=== PATIENT | female | born 1965 | race Caucasian/White ===

== ENCOUNTER 2019-10-29 13:45 | Outpatient (CLI) | payer OTHER, SELFPAY ==
--- NOTE | ~2019-10-29 | XR_ITS ---
EXAMINATION: XR chest 2V DATE: 10/29/2019 14:07 INDICATION: Hypertension. Preop. TECHNIQUE: Frontal and lateral views of the chest were obtained. COMPARISON: Chest 2 views 04/03/2009 FINDINGS: The chest demonstrates clear lungs without pneumonia, pleural effusion, or pneumothorax. Th e heart size is normal. There are prominent paracardial fat pads. There are surgical clips in right a bdomen. IMPRESSION: 1. No acute cardiopulmonary disease. Reviewed, dictated and finalized at location A.
== END 2019-10-29 13:46 | disposition home or self-care (01) ==
PROVIDERS: PCP Nurse Practitioner Family; Visit Provider Orthopaedic Surgery
DX: M75.102 Unspecified rotator cuff tear or rupture of left shoulder, not specified as traumatic (principal); Z87.891 Personal history of nicotine dependence
CPT/HCPCS: 71046; 87070

== ENCOUNTER 2019-10-31 01:11 | Outpatient (CLI) | payer OTHER, SELFPAY ==
[2019-10-31 18:07] LABS: SARS-CoV-2 RNA PCR Negative
== END 2019-10-31 01:12 | disposition home or self-care (01) ==
LOC: ANHCOVIDDT 01:11
PROVIDERS: PCP Nurse Practitioner Family; Visit Provider Orthopaedic Surgery
DX: Z01.812 Encounter for preprocedural laboratory examination (principal); Z11.59 Encounter for screening for other viral diseases
CPT/HCPCS: 87635; C9803; U0003

== ENCOUNTER 2019-11-02 02:25 | Day surgery (SDC) | payer OTHER, SELFPAY ==
[2019-10-24 16:31] VITALS: BMI 34.7
--- NOTE | 2019-10-31 10:17 | HP_ITS ---
DATE OF SERVICE: 11/02/2019 ADMIT DIAGNOSIS: Rotator cuff tear, left shoulder. HISTORY OF PRESENT ILLNESS: Ms. Peraza is a 54-year-old female patient of Dr. Del Castillo who presents today for arthroscopy of the left shoulder with acromioplasty, mini open rotator cuff repair. She injured her left shoulder on July 12 of this year when she was helping her mother out of a tub. Her mother slipped falling a little bit. She went to grab her and most of the weight fell into her left arm. She started having rather severe pain since that time. She initially saw her primary care doctor, was put on diclofenac, which did not improve her symptoms. She was initially evaluated by Dr. Strickland on August 14. After initial evaluation, she was sent for an MRI scan of the shoulder, which does show a full-thickness rotator cuff tear involving the entire width of the supraspinatus and upper portion of the infraspinatus. There appears to be an acute component of this as well as most likely some degree of chronic tearing. The patient is fairly miserable with the symptoms. She has had no improvement for almost 4 months in the shoulder. Dr. Strickland discussed surgical option of repair, which the patient like to proceed with today. PAST SURGICAL HISTORY: She has had sinus surgeries x2 in the past. She has had her gallbladder out in the past, appendectomy in the past, PAST MEDICAL HISTORY: History of diabetes, hypothyroidism, hypertension. CURRENT MEDICATIONS: She takes amlodipine 5 mg daily, Celebrex 200 mg daily, Pepcid 40 mg daily, 2 mg daily, albuterol inhaler p.r.n., metformin 500 mg daily, pantoprazole 40 mg daily. ALLERGIES: SULFA CODEINE AND MORPHINE. FAMILY HISTORY: Significant for ME, CVAs, as well as diabetes. SOCIAL HISTORY: She quit smoking in September 2017. PHYSICAL EXAMINATION: GENERAL: A 54-year-old female, very alert, pleasant. She is 5 feet 2 inches, 195 pounds. VITAL SIGNS: Other vital signs per nursing on the morning of surgery. HEENT: Grossly normal. LUNGS: Clear bilaterally. HEART: Regular rate and rhythm. EXTREMITIES: Left shoulder is elevation 170, external rotation is 60, internal rotation is to T8. She has rather severe pain with primary and secondary impingement testing. Moderate pain with thumbs-down abduction testing and weakness to a moderate degree. Mild weakness with external rotation. Strength testing. Negative belly press maneuver. Able to do a subscap lift-off. Moderate tenderness over the supraspinatus tendon insertion in the bicipital groove. No tenderness at the AC joint. Neck range of motion was moderately diminished. Negative Spurling's maneuver. 2+ radial pulse. Normal sensation in the left upper extremity. IMAGING DATA: X-rays demonstrate irregularities of the greater tuberosity. MRI scan again shows full-thickness tearing of the entire width of the supraspinatus as well as the upper portion of the infraspinatus. Some mild edema and fatty infiltration in both supraspinatus and infraspinatus muscle bellies. There is some involution of the tendon within the supraspinatus muscle belly suggesting acute component of the tear. IMPRESSION: Mrs. Peraza has a full-thickness rotator cuff tear, moderate to large size, with significant symptoms. Dr. Strickland discussed the options. The patient would like to proceed with surgical repair of the tendon. Surgical procedure as well as risks and complications were discussed. All questions were answered. We will proceed. The patient will stop her diclofenac. We have switched her to Celebrex to take for pain control prior to surgery. She has recently had an A1c, which was on August 29, which was 7.2. Surgical procedure as well as risks complications were discussed in detail. Questions were answered and donnie
[2019-11-02] VITALS (19 sets, daily range): BP systolic 94–132; BP diastolic 53–81; PULSE 70–102; RESP 12–20; TEMP 35.5–36.3; O2SAT 91–100
[2019-11-02 11:03] LABS: Glucose Point of Care 199 (65-105)
--- NOTE | 2019-11-02 11:08 | WPDANESEPPF ---
Anes - Initial Pre Proc Eval Procedure: Operation Date: 11/02/19 12:30 Proposed Procedures p Left Shoulder Arthroscopy, Acromioplasty, Mini Open Rotator Cuff Repair, Possible Arthrex Tissue Patch, Proceed As Indicated - Kush Strickland MD Date/Time: 11/02/19 11:08 Surgeon: Kush Strickland MD Pre Op Diagnosis: Left Rotator Cuff Tear Patient Data Age: 54 Gender: F Height: 5 ft 2 in Weight: 86.18 kg Allergies Allergy/AdvReac Type Severity Reaction Status Date / Time codeine Allergy Unknown HALLUCINATE, Verified 11/02/19 10:43 PARANOID morphine Allergy Unknown ANGER, Verified 11/02/19 10:43 COMBATIVE Home Medications Medication Instructions Recorded Confirmed Type amlodipine 5 mg PO DAILY 10/24/19 11/02/19 History atorvastatin 20 mg PO DAILY 10/24/19 11/02/19 History cholecalciferol (vitamin D3) 125 mcg PO DAILY 10/24/19 11/02/19 History [Vitamin D3] cyanocobalamin (vitamin B-12) 1,000 mcg PO DAILY 10/24/19 11/02/19 History [Vitamin B-12] cyclobenzaprine 10 mg PO HS 10/24/19 11/02/19 History diclofenac sodium 75 mg PO BID 10/24/19 11/02/19 History famotidine 40 mg PO DAILY 10/24/19 11/02/19 History glimepiride 2 mg PO DAILY 10/24/19 11/02/19 History insulin lispro [Humalog U-100 1 sliding scale dose SUBCUT 10/24/19 11/02/19 History Insulin] USEASDIRECTD levothyroxine 100 mcg PO DAILY 10/24/19 11/02/19 History lisinopril 20 mg PO BID 10/24/19 11/02/19 History metoprolol succinate 25 mg PO BID 10/24/19 11/02/19 History tiotropium-olodaterol [Stiolto 2 puff INHALATION DAILY 10/24/19 11/02/19 History Respimat] zinc 50 mg PO DAILY 10/24/19 11/02/19 History Laboratory Tests 11/02/19 10:59 POC Capillary Glucose 199 mg/dl H mg/dl (65-105) Patient hx anesthesia problems: none Family hx anesthesia problems: none PMFSH Past Medical History Medical History Anxiety COPD (chronic obstructive pulmonary disease) Diabetes Hyperlipidemia Hypertension Hypothyroid Social History Social History Smoking packs per day: 1.5 Smoking cigarettes per day: 30.0 Years smoked: 15 Smoking pack-years: 22.50 Smoking status: Former smoker Additional smoking assessment comments: QUIT 2 YEARS AGO Substance use: former Substance use type: marijuana Spiritual care concerns: No Anes - Eval Final PreProcedure Day of Procedure 11/02/19 11:08 Patient weight: obese Heart: regular rate and rhythm Lungs: decreased breath sounds Airway: Mallampati scale class II Neurological: alert and oriented Last oral intake: >/= 8 hours ASA classification: III Emergent: no Anesthetic plan: proceed Anesthesia type and monitoring: general ETT and standard monitoring Informed Consent: The patient's anesthetic plan and its attendant risks and benefits were discussed with the patient/family/POA. Questions were solicited and answers provided to the satisfaction of the patient/family/POA.
[2019-11-02] MEDS: LACTATED RINGERS 1,000 ML 30 ML IV CONT ×2 (11:19→15:58)
[2019-11-02] MEDS: KETOROLAC 15 MG/ML VIAL (*BKC) IV PUSH (11:19)
[2019-11-02] MEDS: ACETAMINOPHEN 500 MG TABLET 1000 MG PO (11:20)
--- NOTE | 2019-11-02 12:20 | WPDHPUPDATE1 ---
History and Physical Update Update Date/Time: 11/02/19 12:20 History and Physical has been reviewed, including an updated exam of the patient. There are NO changes in the patient's condition. Risks, benefits, and alternatives have been discussed and questions answered. Patient agrees to proceed with procedure.
[2019-11-02] MEDS: ceFAZolin 2 GM/D5W 50 ML 2 GM/50 ML BAG IVPB (12:29)
[2019-11-02] MEDS: BUPIVACAINE/EPINEPHRINE 0.5% 30 ML VIAL INFILTRATE (13:22)
[2019-11-02] MEDS: ceFAZolin SODIUM 1 GM VIAL IRRIGATION (13:22)
[2019-11-02] MEDS: ceFAZolin SODIUM 1 GM VIAL IV PUSH (15:38)
[2019-11-02] MEDS: KETOROLAC 30 MG/ML VIAL (*BKC) 15 MG IV PUSH (15:49)
--- NOTE | 2019-11-02 16:07 | PM.OP ---
Procedure Note - Brief Procedure Note - Brief Date of procedure: 11/02/19 Pre-op diagnosis: Left Rotator Cuff Tear Post-op diagnosis: same Procedure performed: Arthroscopic limited debridement and acromioplasty, open biceps tenodesis in the bicipital groove, mini open rotator cuff repair left shoulder Anesthesia: GETA Surgeon: Kush Strickland MD Assistant Finance Director: Gianluca stevens Estimated blood loss (mL): 50 Drains: No Packing: No Pathology: none sent Complications: No immediate complications Condition: stable Disposition: PACU
[2019-11-02] MEDS: ONDANSETRON INJ 4 MG/2 ML VIAL IV PUSH (16:19)
[2019-11-02] MEDS: diphenhydrAMINE HCl INJ 50 MG/ML VIAL 12.5 MG IV PUSH ×2 (16:44→17:22)
[2019-11-02 17:02] LABS: Glucose Point of Care 203 (65-105)
--- NOTE | 2019-11-02 18:31 | SUR.PHASEII ---
182 DR MONROY AWARE OF CONTINUED NAUSEA & PAIN RATING OF 9/10. STATES TO ADMIT PT & CONSULT HOSPITALIST FOR NAUSEA CONTROL.
--- NOTE | 2019-11-02 20:01 | ADMGEN ---
This patient, Luz Peraza, was admitted to 2 Medical Room 240-01 @ 1930. Patient/family oriented to hospital policies and general routines including ID bracelet, bed and alarms, visiting hours, pain management, procedures, bathroom and other care routines, personal items, smoking policy, room service/diet, and visiting hours. Valuables list has been completed. Information on how to activate the Rapid Response Team has been discussed. Patient/Family are encouraged to report perceived risks to care and to ask questions if they do not understand what they are told or what they should do.
[2019-11-02] MEDS: DEXTROSE 5%/0.45% SOD CHL 1,000 ML 100 ML IV CONT (20:11)
--- NOTE | 2019-11-02 20:42 | OP_ITS ---
DATE OF PROCEDURE: 11/02/2019 PREOPERATIVE DIAGNOSIS: Rotator cuff tear, left shoulder. POSTOPERATIVE DIAGNOSES: Rotator cuff tear, left shoulder and severe maceration and partial tearing of intra-articular portion of long head of the biceps. PROCEDURE: Arthroscopy, left shoulder with arthroscopic labral debridement and arthroscopic acromioplasty, open biceps tenodesis in the bicipital groove, open rotator cuff repair, left shoulder. DESCRIPTION OF PROCEDURE: The patient was brought to the operating room and general anesthesia was administered. She did not receive an interscalene block preoperatively due to diminished pulmonary function. She was carefully placed in the beach chair position, the head secured in neutral position and the left shoulder prepped and draped in usual fashion. A posterior portal was placed after Ioban coverage of all the skin except the top portion of the shoulder. She received 2 g of Ancef, weight-based vancomycin preoperatively. She had severe maceration of the intra-articular portion of the long head of the biceps with long strands that initially obscured visualization. An anterior superior portal was placed and a small shaver inserted and the maceration of the long head of the biceps was debrided. It was extensive and there was evagination of the intra-articular portion of the long head. There was maceration of the labrum, which was conservatively debrided. The articular cartilage in the glenoid looked good. She had mild chondromalacia diffusely on the humeral head. The upper edge of the subscapularis looked normal. The arthroscope was placed into the subacromial space and the U shaped rotator cuff tear was visualized with a split that ran longitudinally midsubstance from the infraspinatus. She did have bony exostosis at the inferior surface of the anterior acromion. The CA ligament was debrided from the anterior acromion after placing the anterior superior outflow portal using motorized shaver and ArthroCare, and with the ArthroCare and the posterior portal, a conservative anterior acromioplasty was performed. The instruments were removed and the remaining skin covered with Ioban and outer gloves changed. A 4 cm longitudinal incision was made over the anterior superior shoulder and dissection was carried down to the tendinous raphe between anterior middle head of the deltoid, which was longitudinally incised and a 4 cm split carried out. The subdeltoid bursa was incised in line of the split. Approximately 6 mm of anterior deltoid was elevated off the anterior acromion for additional exposure as we anticipated the biceps tenodesis. The rotator cuff tear was inspected and it involved the posterior 2/3rd of the supraspinatus. The anterior cable is still intact, and posteriorly there was a split running parallel to the fibers of the midsubstance of the infraspinatus. The infraspinatus posterior to the split was intact. We approached the long head of the biceps by incising the retinaculum over the bicipital groove. A stay suture was placed at the intended location of the tendon to leave the keyhole slot. We then released the long head of the biceps from the superior labrum under direct vision with a curved scissors, visualizing this through the tear. The biceps tendon was delivered through the incision in the aponeurosis over the bicipital groove and the proximal portion rolled up into a tight ball secured with numerous passes of a #2 FiberWire. The tendon was fairly thick for a female her size, and I could see we wound want a slot measuring about 3 to 3.5 mm thick. A keyhole slot was then made using a 5 mm bur to make about an 8 x 8 mm circular hole in the proximal aspect of the bicipital groove, and an 8 mm long, 3 mm wide slot inferior to this and the balled-up portion of the long
[2019-11-02] MEDS: CEPHALEXIN 500 MG CAPSULE PO (21:09)
[2019-11-02 22:02] LABS: Glucose Point of Care 294 (65-105)
--- NOTE | 2019-11-02 22:30 | WPDCN ---
Assessment and Plan Assessment and plan (1) Left rotator cuff tear: Code(s): M75.102 - Unspecified rotator cuff tear or rupture of left shoulder, not specified as traumatic Status: Acute Assessment and Plan: Status post left rotator cuff repair. Wound care and pain control deferred to primary service. (2) Postoperative nausea and vomiting: Code(s): R11.2 - Nausea with vomiting, unspecified; Z98.890 - Other specified postprocedural states Status: Acute Assessment and Plan: Resolved by the time of my evaluation. IV fluid rehydration overnight as she does appear bit dry. (3) Hypertension: Code(s): I10 - Essential (primary) hypertension Status: Acute Assessment and Plan: Blood pressures were a bit soft postoperatively, but have since normalized. Will resume antihypertensives and monitor closely. (4) Chronic obstructive pulmonary disease: Code(s): J44.9 - Chronic obstructive pulmonary disease, unspecified Status: Acute Assessment and Plan: No acute issues. Continue maintenance inhalers. (5) Type 2 diabetes mellitus: Code(s): E11.9 - Type 2 diabetes mellitus without complications Status: Acute Assessment and Plan: Hold oral hypoglycemics at this time given postoperative nausea and vomiting and not much oral intake this evening. Check hemoglobin A1c and initiate sliding scale insulin, Accu-Cheks, and hypoglycemic protocol. Additional Plan Thank you for allowing us to participate in this patient's care. Please do not hesitate to contact us with any questions. We will follow with you. Supervising physician for this medical consultation is Dr. Elvin Mtz. HPI Data of Consult Date/Time: 11/02/19 22:00 Requesting Physician: Kush Strickland MD Primary Care Provider: Claudine Luther, BEET WORKER Consult Narrative Narrative: Luz ePraza is a 54-year-old female whom the hospitalist service has been consulted for postoperative nausea and vomiting as well as management of her chronic medical conditions. Her medical history is significant for type 2 diabetes mellitus, hypertension, hyperlipidemia, GERD, hypothyroidism, COPD, and pulmonary embolism Sometime in June she injured her left shoulder while helping her mother of the bathtub. She has had quite a bit of pain in that left shoulder and was found to have a full-thickness rotator cuff tear which has been repaired today per Dr. Strickland. No immediate complications were documented and an estimated blood loss was 50 mL. She has a history of postoperative nausea and vomiting, and that was no different today. Fortunately she was given a cocktail in the perioperative setting and is feeling pretty good at this time. In fact she was able to eat not long prior to my arrival, and she is having no nausea. With regards to her pain, she has minimal discomfort in the left shoulder. She denies paresthesias, skin color, and temperature changes distal to the surgical site. She also denies chest pain shortness of breath. No fever or chills. Review of Systems Review of Systems: Narrative: Twelve systems were reviewed with pertinent positives and negatives as per HPI. No fever, chills, or sweats. No recent cold or flu symptoms. She denies cough and shortness of breath. No recent travel or sick contacts. She believes her diabetes is well controlled and she denies blurry vision, polydipsia, and polyuria. She does have irritable bowel syndrome and alternates between constipation and diarrhea. Except as documented, all other systems were reviewed and are negative. [facility] Past Medical History Medical History (Updated 11/03/19 @ 00:06 by Sawyer
[2019-11-03] MEDS: KETOROLAC 15 MG/ML VIAL (*BKC) IV PUSH ×2 (00:15→06:28)
[2019-11-03 01:06] VITALS: BP 101/61; PULSE 95; RESP 18; TEMP 35.9; O2SAT 96
[2019-11-03] MEDS: ONDANSETRON INJ 4 MG/2 ML VIAL IV PUSH (04:03)
[2019-11-03 05:06] VITALS: BP 145/71; PULSE 106; RESP 22; TEMP 36.6; O2SAT 99
[2019-11-03 06:16] LABS: Hemoglobin A1C 7.6 % (<5.7)
[2019-11-03] MEDS: LEVOTHYROXINE SODIUM 100 MCG TABLET PO (06:25)
--- NOTE | 2019-11-03 08:23 | WPDANESPN ---
Anes - Prog Note Post-Op Date/Time: 11/03/19 08:23 Cardiovascular status: normal Respiratory status: normal Airway patency: baseline Mental status: baseline Post-Op hydration status: normal Vital Signs: Last Vital Signs Temp 97.9 F 11/03/19 05:06 Pulse 106 H 11/03/19 05:06 Resp 22 H 11/03/19 05:06 BP 145/71 H 11/03/19 05:06 Pulse Ox 99 11/03/19 05:06 I/O: Intake & Output 11/02/19 11/03/19 11/03/19 23:59 07:59 15:59 Intake Total 700 350 Output Total 550 Balance 700 -200 11/02/19 11/02/19 11/02/19 10:59 16:29 20:16 POC Capillary Glucose 199 H 203 H 294 H Hemoglobin A1c 11/03/19 05:24 POC Capillary Glucose Hemoglobin A1c 7.6 H Post-procedural complaints: nausea Patient Feedback: Patient satisfied with anesthetic care.
[2019-11-03 09:10] LABS: Glucose Point of Care 230 (65-105)
[2019-11-03] MEDS: amLODIPine BESYLATE 5 MG TABLET PO (09:18)
[2019-11-03 09:19] VITALS: PULSE 104
[2019-11-03] MEDS: METOPROLOL SUCCINATE EXT REL 25 MG TABCR PO (09:19)
[2019-11-03] MEDS: FAMOTIDINE 20 MG TABLET 40 MG PO (09:19)
[2019-11-03] MEDS: lisinopriL 20 MG TABLET PO (09:19)
[2019-11-03] MEDS: ATORVASTATIN 20 MG TABLET PO (09:19)
[2019-11-03] MEDS: DOCUSATE SODIUM 100 MG CAPSULE PO (09:20)
[2019-11-03] MEDS: CEPHALEXIN 500 MG CAPSULE PO ×2 (09:20→13:05)
[2019-11-03] MEDS: INSULIN ASPART (*BKC) 100 UNITS/ML SUB-Q ×2 (09:21→13:08)
[2019-11-03 10:00] VITALS: BP 108/62; PULSE 90; RESP 18; TEMP 37.8; O2SAT 100
--- NOTE | 2019-11-03 10:56 | PM.IMPN ---
Progress Note: A&P Assessment and Plan (1) Left rotator cuff tear: Code(s): M75.102 - Unspecified rotator cuff tear or rupture of left shoulder, not specified as traumatic Status: Acute Assessment and Plan: Status post left rotator cuff repair by Dr. Strickland on 11/02/2019 Wound care and pain control deferred to primary service. (2) Postoperative nausea and vomiting: Code(s): R11.2 - Nausea with vomiting, unspecified; Z98.890 - Other specified postprocedural states Status: Acute Assessment and Plan: The patient ate breakfast this morning without any nausea or vomiting. She was able to take her pain medication this morning without any issues as well. She would like some antinausea pills to go home with since narcotics cause her to have nausea and vomiting at times. Will send her home with Zofran to take as needed for nausea (3) Hypertension: Code(s): I10 - Essential (primary) hypertension Status: Acute Assessment and Plan: Blood pressures are stable at this time. (4) Chronic obstructive pulmonary disease: Code(s): J44.9 - Chronic obstructive pulmonary disease, unspecified Status: Acute Assessment and Plan: No acute issues. Continue maintenance inhalers. (5) Type 2 diabetes mellitus: Code(s): E11.9 - Type 2 diabetes mellitus without complications Status: Acute Assessment and Plan: Hold oral hypoglycemics at this time given postoperative nausea and vomiting and not much oral intake this evening. Serum glucose this morning was slightly elevated at 230. Hemoglobin A1c was 7.6%. Continue sliding scale insulin while hospitalized and, Accu-Cheks ACHS. Once discharge she can resume her oral medications Time Spent With Patient Time with patient: 25 - 35 minutes Subjective Date/time seen: 11/03/19 10:56 Interval history: Date of service 11/03/2019: Patient reports feeling much better this morning. She states after every surgery were she received anesthesia she has nausea and vomiting episodes as well as apnea episodes were she is requiring oxygen. She also reports having issues with taking narcotic pain medications were she has nausea and vomiting associated. This morning she was able to eat her breakfast and take her narcotic pain medication without any issues thus far. She denies any chest pain, shortness of breath, fevers, chills, nausea, vomiting, abdominal pain, leg swelling, calf pain, lightheadedness, dizziness or any other symptoms at this time. Review of Systems Review of Systems: All systems reviewed & are unremarkable except as noted in HPI and below Exam Narrative: Exam Narrative: General: 54-year-old woman sitting up in bed talking to the aid. Appears comfortable. In no acute distress. Skin: No jaundice or cyanosis. Good skin turgor. Neck: Full range of motion. Supple. Respiratory: Lungs are clear to auscultation bilaterally. No wheezing, rales or rhonchi. No bony chest wall tenderness. Cardiovascular: The heart has a regular rate and rhythm without murmur. Left upper extremity: Left arm immobilizer is in place after having left rotator cuff surgery. Lower extremities: No lower extremity edema. Distal pulses are easily palpated. No calf tenderness to palpation. Gastrointestinal: The abdomen is soft, nontender and nondistended with active bowel sounds. Psychiatric: Lucid and oriented. Memory intact. Neurologic: No focal deficits. Speech is clear. No facial drooping. Objective Data Vital Signs Vital Signs: Vital Signs - 24 hr 11/02/19 11:24 11/02/19 15:58 11/02/19 16:10 Temperature 96.9 F L 97.3 F L Pulse Rate 70 74 85 Respir
[2019-11-03 11:59] LABS: Glucose Point of Care 201 (65-105)
[2019-11-03 12:00] VITALS: TEMP 37.2
[2019-11-03] MEDS: ACETAMINOPHEN 500 MG TABLET 1000 MG PO (13:07)
--- NOTE | 2019-11-03 16:49 | DS_ITS ---
DATE OF DISCHARGE: 11/03/2019 HOSPITAL COURSE: The patient is a 54-year-old female, who was admitted last evening for observation after outpatient surgery when she had severe nausea in the recovery room last evening. She had quite a bit of pain initially and this was controlled over the night with IV Toradol and a scopolamine patch was applied and she has done much better and feels she is ready to go home today. She is neurologically intact in left arm. She has no shortness of breath and her pain is well controlled. We are using oxycodone 2.5 and 5 mg doses and she has tolerated this well. History of intolerance to narcotics in the past, specifically codeine and morphine. We are going with low doses with her and she will use the 2.5 mg if all that is required as she does have some degree of emphysema problems. Her diabetes is marginally controlled and I talked to her about the fact that she is going to need to decrease her caloric intake, particularly sweets, but she does have significant obesity with a BMI of 35, which certainly contributes to poor diabetes control and generalized weight loss is recommended. Because of her diabetes, we have given her a 5-day course of Keflex for additional antibiotic prophylaxis against infection. At surgery, we repaired the rotator cuff tear and also performed a biceps tenodesis, as she had a markedly torn and macerated long head of biceps tendon intra-articular portion. She will be discharged home today with her . I am going to prescribe ibuprofen 400 mg 3 times a day as needed for a week. There is theoretical concern of decreased healing with concomitant antiinflammatory use after tendon repair, but I think the risk of this is outweighed by the risk of respiratory depression if we cannot control her pain adequately, and she has to take higher doses of narcotics to control her pain. She will also use scheduled Tylenol. I will see her in the office in 10 days. She will have outpatient physical therapy to start 1st part of next week to begin limb pendulum exercises and active range of motion of the wrist and digits. She will avoid use of the left hand. If she has any problems, she is instructed to call. Estephania I MT: [place]
== END 2019-11-03 14:04 | disposition home or self-care (01) ==
LOC: ANHSURGERY 16:12 → ANH2MED 19:22
PROVIDERS: Physician Assistant; PCP Nurse Practitioner Family; Visit Provider Orthopaedic Surgery
PROC: (CPT 29805; principal; 2019-11-02 12:30)
DX: M75.102 Unspecified rotator cuff tear or rupture of left shoulder, not specified as traumatic (principal); M75.82 Other shoulder lesions, left shoulder; R11.2 Nausea with vomiting, unspecified; I10 Essential (primary) hypertension; E78.5 Hyperlipidemia, unspecified; E03.9 Hypothyroidism, unspecified; E11.9 Type 2 diabetes mellitus without complications; J44.9 Chronic obstructive pulmonary disease, unspecified; F41.9 Anxiety disorder, unspecified; Z87.891 Personal history of nicotine dependence; Z79.4 Long term (current) use of insulin; E66.9 Obesity, unspecified; Z68.35 Body mass index [BMI] 35.0-35.9, adult; Z86.711 Personal history of pulmonary embolism
CPT/HCPCS: 29823; 23412; 23430; 36415; 83036; A4565; A9270; J0690; J1170; J1200; J1815; J1885; J2250; J2370; J2405; J2704; J2710; J3010; J3370; J7120

== ENCOUNTER 2019-11-18 09:58 | Emergency (ER) | payer OTHER, SELFPAY ==
--- NOTE | ~2019-11-18 | XR_ITS ---
XR chest 1V portable DATE: 11/18/2019 10:35 INDICATION: Cough, shortness of breath TECHNIQUE: Portable AP chest on 11/18/2019 at 1027 hours COMPARISON: 10/29/2019 2 view chest FINDINGS: Heart size appears within normal range. No pulmonary infiltrate or consolidation, pleural e ffusion or pulmonary vascular congestion or pneumothorax is evident. Aortic arch calcification. Diffuse idiopathic skeletal hyperostosis of the thoracic spine. Osteopenia. IMPRESSION: No active cardiopulmonary disease Reviewed, dictated and finalized at location A.
[2019-11-18 10:14] VITALS: BP 103/87; PULSE 83; RESP 14; TEMP 37.1; O2SAT 98
[2019-11-18 10:21] VITALS: PULSE 79; O2SAT 98
--- NOTE | 2019-11-18 10:43 | ED.GENADULT ---
HPI - General Adult General Chief complaint: Shortness of Breath/Dyspnea <JOCY West Last Filed: 11/18/19 11:02> Stated complaint: bronchitis? <Jorge L Tenorio PA-C - Last Filed: 11/18/19 11:02> Time Seen by Provider: 11/18/19 10:14 <JOCY West Last Filed: 11/18/19 11:02> Source: patient <JOCY West Last Filed: 11/18/19 11:02> Mode of arrival: ambulatory <JOCY West Last Filed: 11/18/19 11:02> Limitations: no limitations <JOCY West Last Filed: 11/18/19 11:02> History of Present Illness HPI narrative: Patient is a 54-year-old female who presents to emergency department for evaluation of upper respiratory symptoms noting that her family will have upper respiratory symptoms patient notes her symptoms began Tuesday notes nonproductive cough denies other upper respiratory symptoms denies chest pain shortness of breath. Patient had a chest x-ray ordered by her primary care doctor. Patient went outside hospital was told her insurance was not covered and came to [place] for care. Patient notes history of COPD emphysema. Patient using her inhalers and nebulizers with relief at home <JOCY West Last Filed: 11/18/19 11:02> Related Data Home medications: Home Medications Medication Instructions Recorded Confirmed Humalog U-100 Insulin 1 sliding scale dose SUBCUT 10/24/19 11/02/19 USEASDIRECTD Stiolto Respimat 2 puff INHALATION DAILY 10/24/19 11/02/19 amlodipine 5 mg PO DAILY 10/24/19 11/02/19 atorvastatin 20 mg PO DAILY 10/24/19 11/02/19 cholecalciferol (vitamin D3) 125 mcg PO DAILY 10/24/19 11/02/19 [Vitamin D3] cyanocobalamin (vitamin B-12) 1,000 mcg PO DAILY 10/24/19 11/02/19 [Vitamin B-12] famotidine 40 mg PO DAILY 10/24/19 11/02/19 glimepiride 2 mg PO DAILY 10/24/19 11/02/19 levothyroxine 100 mcg PO DAILY 10/24/19 11/02/19 lisinopril 20 mg PO BID 10/24/19 11/02/19 metoprolol succinate 25 mg PO BID 10/24/19 11/02/19 zinc 50 mg PO DAILY 10/24/19 11/02/19 ascorbic acid (vitamin C) 1,000 mg PO DAILY 11/02/19 11/02/19 <Jorge L Tenorio PA-C - Last Filed: 11/18/19 11:02> Allergies/adverse reactions: Allergies Allergy/AdvReac Type Severity Reaction Status Date / Time codeine Allergy Unknown HALLUCINATE, Verified 11/18/19 10:23 PARANOID morphine Allergy Unknown ANGER, Verified 11/18/19 10:23 COMBATIVE <Jorge L Tenorio PA-C - Last Filed: 11/18/19 11:02> Review of Systems Review of Systems: All systems reviewed & are unremarkable except as noted in HPI and below <Jorge L Tenorio PA-C - Last Filed: 11/18/19 11:02> [facility] Past Medical History Medical History: Medical History Anxiety Bowel obstruction (~2019) Chronic obstructive pulmonary disease Hyperlipidemia Hypertension Hypothyroidism Pulmonary embolism (~02/2007) Type 2 diabetes mellitus <Jorge L Tenorio PA-C - Last Filed: 11/18/19 11:02> Surgical History Surgical History: Surgical History History of appendectomy History of arthroscopy of left knee History of cholecystectomy History of repair of left rotator cuff (~11/03/19) History of sinus surgery History of tonsillectomy <Jorge L Tenorio PA-C - Last Filed: 11/18/19 11:02> Social History Social History: Social History Social History: Surrogate decision maker: Christiano Peraza, . Code status: Full code. Smoking packs per day: 1.5 Smoking cigarettes per day: 30.0 Years smoked: 52 Smoking pack-years: 78.00 Smoking status: Former smoker Tobacco type: cigarettes Smoking end date: 10/02/17 Alcohol intake: never Substance use: former Other substance usage details: Prior history of substance abuse to include marijuana, cocaine, and methamp
== END 2019-11-18 11:21 | disposition home or self-care (01) ==
PROVIDERS: Emergency Provider General Practice; PCP Nurse Practitioner Family
DX: J06.9 Acute upper respiratory infection, unspecified (principal); J43.9 Emphysema, unspecified; E11.9 Type 2 diabetes mellitus without complications; E03.9 Hypothyroidism, unspecified; I10 Essential (primary) hypertension; E78.5 Hyperlipidemia, unspecified; Z79.4 Long term (current) use of insulin; Z86.711 Personal history of pulmonary embolism; Z79.84 Long term (current) use of oral hypoglycemic drugs; Z87.891 Personal history of nicotine dependence
CPT/HCPCS: 71045; 99284

== ENCOUNTER 2020-01-29 19:05 | Emergency (ER) | payer OTHER, SELFPAY ==
--- NOTE | ~2020-01-29 | CT_ITS ---
EXAMINATION: CTA chest PE protocol DATE: 01/29/2020 20:40 INDICATION: Chest pain and shortness of breath TECHNIQUE: Computed tomography angiography (CTA) of the chest was performed with 100 mL Omnipaque-350 intravenous contrast timed to evaluate the pulmonary arteries. Coronal maximum intensity projection 3D-reconstructions were created by the technologist. The dose-length product (DLP) was 759.80 mGy-cm. Automated exposure control and iterative reconstruction technique were employed. COMPARISON: 03/15/2007 FINDINGS: The pulmonary arteries are well-opacified. No pulmonary embolism is identified. The lungs a re free of acute opacities. There is no pleural effusion or pneumothorax. No pathologically enlarged thoracic lymph nodes are identified. The heart size is normal. There is moderate thoracic spondylosis . IMPRESSION: 1. No pulmonary embolism or acute cardiopulmonary abnormality. Reviewed, dictated and finalized at location A.
[2020-01-29 19:07] VITALS: PULSE 78; O2SAT 98
--- NOTE | 2020-01-29 19:07 | ECG_ITS ---
Measurements Intervals [place] Rate: 78 P: 53 VA: 193 QRS: 15 QRSD: 88 T: 33 QT: 399 QTc: 455 Interpretive Statements SINUS RHYTHM BORDERLINE T WAVE ABNORMALITY- ANT/INF LEADS BORDERLINE ECG Electronically Signed On 01-29-2020 19:41:04 CDT by Rey Rascon D.O.
[2020-01-29 19:09] VITALS: BP 142/70; PULSE 79; RESP 16; TEMP 36.5; O2SAT 100
[2020-01-29 19:27] LABS: Basophils Percent Auto 0.3 % (0.2-1.2); Eosinophils Absolute Auto 0.1 K/mm3 (0-0.3); Eosinophils Percent Auto 2.1 % (0-4.4); Hematocrit 34.6 % (37.0-47.0); Hemoglobin 11.5 g/dL (12.0-15.0); Immature Granulocyte Absolute 0.03 K/mm3 (0.00-0.031); Immature Granulocyte Percent A 0.5 % (0-0.5); Lymphocytes Absolute Auto 2.03 K/mm3 (0.9-3.2); Mean Corpuscular HGB Conc 33.2 g/dl (32-36); Mean Corpuscular Hemoglobin 30.4 pg (26-34); Mean Corpuscular Volume 91.5 fl (80-100); Mean Platelet Volume 9.2 fl (7.4-10.4); Monocytes Absolute Auto 0.5 K/mm3 (0.1-0.6); Neutrophils Absolute Auto 3.8 K/mm3 (1.3-6.7); Neutrophils Percent Auto 58.1 % (45.5-73.1); Platelet Count Result 189 k/mm3 (150-375); Red Blood Count 3.78 M/mm3 (4.2-5.4); Red Cell Distribution Width 12.5 % (11.5-14.5); White Blood Count 6.5 K/mm3 (4.5-10.0)
[2020-01-29 19:38] LABS: Anion Gap 10 mmol/L (8-16); Blood Urea Nitrogen 15 mg/dL (7-17); Calcium 9.8 mg/dL (8.4-10.2); Carbon Dioxide 29 mmol/L (22-30); Chloride 103 mmol/L (98-107); Estimated CRCL calculation 63 ml/min; Estimated Glomerular Filt Rate > 60; Glucose 186 mg/dL (65-105); Sodium 142 mmol/L (137-145)
[2020-01-29 19:50] LABS: INR 0.9; Partial Thromboplastin Time 28.1 SECONDS (22.3-36.8); Prothrombin Time 12.1 Seconds (11.1-14.7); Troponin I < 0.012 ng/mL (0.000-0.034)
--- NOTE | 2020-01-29 20:12 | ED.CHESTPAIN ---
HPI - Chest Pain General Chief Complaint: Chest Pain Stated Complaint: chest pain, sent for CT Time Seen by Provider: 01/29/20 20:02 History of Present Illness HPI narrative: Patient is a 54-year-old female who presents to the ER with chest pain. Intermittent over the last 2 to 3 weeks. She has had it 3 times today. It is right of the central part of her chest. Last for an unknown amount of time. Comes on sporadically and is sharp. No aggravating or alleviating factors. Patient has chronic cough from her COPD. Patient has previous history of DVT/PE. Occurred in 2007. Not currently on blood thinners. No exertional dyspnea or other component related to the chest pain. Related Data Home Medications Medication Instructions Recorded Confirmed Humalog U-100 Insulin 1 sliding scale dose SUBCUT 10/24/19 11/02/19 USEASDIRECTD Stiolto Respimat 2 puff INHALATION DAILY 10/24/19 11/02/19 amlodipine 5 mg PO DAILY 10/24/19 11/02/19 atorvastatin 20 mg PO DAILY 10/24/19 11/02/19 cholecalciferol (vitamin D3) 125 mcg PO DAILY 10/24/19 11/02/19 [Vitamin D3] cyanocobalamin (vitamin B-12) 1,000 mcg PO DAILY 10/24/19 11/02/19 [Vitamin B-12] famotidine 40 mg PO DAILY 10/24/19 11/02/19 glimepiride 2 mg PO DAILY 10/24/19 11/02/19 levothyroxine 100 mcg PO DAILY 10/24/19 11/02/19 lisinopril 20 mg PO BID 10/24/19 11/02/19 metoprolol succinate 25 mg PO BID 10/24/19 11/02/19 zinc 50 mg PO DAILY 10/24/19 11/02/19 ascorbic acid (vitamin C) 1,000 mg PO DAILY 11/02/19 11/02/19 Allergies Allergy/AdvReac Type Severity Reaction Status Date / Time codeine Allergy Unknown HALLUCINATE, Verified 11/18/19 10:23 PARANOID morphine Allergy Unknown ANGER, Verified 11/18/19 10:23 COMBATIVE Review of Systems Review of Systems: All systems reviewed & are unremarkable except as noted in HPI and below Constitutional: Constitutional: Denies chills, Denies fever(s) and Denies weakness ENT: Denies nasal congestion and Denies sore throat Cardiovascular: Cardiovascular: Reports chest pain, Denies rapid heart rate and Denies radiating jaw, neck or arm pain Respiratory: Respiratory: Reports cough, Denies dyspnea and Denies wheezing Gastrointestinal: Gastrointestinal: Denies abdominal pain, Denies nausea and Denies vomiting PMFSH Social History Social History Social History: Surrogate decision maker: Christiano Peraza, . Code status: Full code. Smoking packs per day: 1.5 Smoking cigarettes per day: 30.0 Years smoked: 52 Smoking pack-years: 78.00 Smoking status: Former smoker Tobacco type: cigarettes Smoking end date: 10/02/17 Alcohol intake: never Substance use: former Other substance usage details: Prior history of substance abuse to include marijuana, cocaine, and methamp Additional living arrangements comments: Lives in [place] with her , children, and grandchildren. Gender identity (if verbalized by the patient): Female Spiritual care concerns: No Exam Narrative: Exam Narrative: GENERAL: Well-appearing, well-nourished, and in no acute distress. HEAD: Normocephalic, atraumatic. CHEST: Clear to auscultation. No respiratory distress. HEART: Regular rate and rhythm. No murmur heard. Normal peripheral pulses. EXTREMITIES: Normal range of motion. Normal strength. SKIN: Warm, dry, no rash. NEURO: Ambulates without issue. Alert and oriented x3. PSYCH: Normal mood and affect. Course Course Emergency Course: Patient informed of results. Recommends scheduled NSAIDS and that she should take her albuterol scheduled instead of PRN. Vital Signs Vital signs: Vital Signs Temperature 97.7 F 01/29/20 19:09 Pulse Rate 79 01/29/20 19:09 Respiratory Rate 16 01/29/20 19:09 Blood Pressure 142/70 H 01/29/20 19:09 Pulse Oximetry 100 01/29/20 19:09 Temperature 97.7 F 01/29/20 19:09 Pulse Rate 79 01/29/20 19:09 Respirator
[2020-01-29 21:00] VITALS: BP 113/55; PULSE 70; RESP 12; O2SAT 99
[2020-01-29 22:10] VITALS: BP 113/71; PULSE 70; RESP 13; O2SAT 99
== END 2020-01-29 22:10 | disposition home or self-care (01) ==
PROVIDERS: Emergency Medicine; Emergency Provider Emergency Medicine; PCP Nurse Practitioner Family
DX: R07.89 Other chest pain (principal); Z87.891 Personal history of nicotine dependence; J44.9 Chronic obstructive pulmonary disease, unspecified
CPT/HCPCS: 36415; 71275; 80048; 84484; 85025; 85380; 85610; 85730; 93005; 99284; Q9967

== ENCOUNTER → 2020-02-20 11:46 | Outpatient (CLI) | payer OTHER, SELFPAY ==
--- NOTE | ~2020-02-20 | XR_ITS ---
EXAMINATION: XR fl inj shoulder LT - MR/CT DATE: 02/20/2020 13:48 INDICATION: Right shoulder pain and weakness with prior rotator cuff repair TECHNIQUE: A time-out was performed to verify the patient's name, date of , and procedure to b e performed. The procedure including the risks, benefits, and alternatives was discussed with the pat ient. Risks discussed included bleeding and infection. The patient understood the risks and agreed to proceed. The skin overlying the rotator cuff interval of the left glenohumeral joint was prepped an d draped in usual sterile fashion. Anesthetic was administered with 1% lidocaine subcutaneously. A 22 G needle was advanced under fluoroscopic guidance into the joint. Injection of 0.6 mL of Omnipaqu e 240 confirmed intra-articular position of the needle. Subsequently, injectate consisting of 12 mL of 2:1:1 mixture of sterile saline:Omnipaque 240:1% lidocaine mixed 200:1 with 529 mg/mL Multihance g adolinium contrast was injected. Washout of contrast was seen confirming intra-articular administrati on. The needle was removed and the entry site was cleaned and dressed. There were no immediate compl ications. Fluoroscopy exposure time was 0.4 minutes. The total number of images was 46. FINDINGS: Real-time fluoroscopy demonstrates the needle in the left glenohumeral joint. There is exte nsion of a large amount of contrast into the subacromial/subdeltoid bursa which could represent eithe r residual perforation post prior repair or recurrent tear. See subsequent left shoulder MR arthrogra m report for further detail. IMPRESSION: 1. Successful left glenohumeral joint injection of a dilute gadolinium contrast mixture for subsequen t MRI arthrogram which will be dictated separately. Reviewed, dictated and finalized at location B. IMPRESSION: 1. Successful left glenohumeral joint injection of a dilute gadolinium contrast mixture for subsequent MRI arthrogram which will be dictated separately.
--- NOTE | ~2020-02-20 | MR_ITS ---
EXAMINATION: MR shoulder LT w con DATE: 02/20/2020 14:23 INDICATION: Left shoulder pain and weakness post prior left rotator cuff repair. TECHNIQUE: Magnetic resonance imaging (MRI) of the left shoulder was performed following intra-artic ular gadolinium contrast injection and without intravenous contrast. Details of the glenohumeral join t injection have been dictated separately. Sequences included axial T2-weighted FS FSE, axial T1-alfa ghted FS FSE, coronal oblique T1-weighted FS FSE, coronal oblique T2-weighted FSE, sagittal T2-weight ed FS FSE, sagittal T1-weighted FSE, and ABER (abduction external rotation) T1-weighted FS FSE. COMPARISON: None. FINDINGS: Coracoacromial arch: The acromion undersurface is curved in morphology (type II). The coracoacromial ligament appears to h ave been resected from its acromial attachment. Mild acromioclavicular osteoarthritis with small infe riorly directed osteophytes. Rotator cuff: Suture anchors along the lateral margin of the intertubercular groove and anterior facet of the great er tuberosity, the latter likely related to prior rotator cuff repair. There is attenuation of the di stal supraspinatus tendon with articular sided tear with 2.5 cm medial retraction of the torn articul ar side of the tendon which appears to involve up to one half of the tendon thickness. The distal pro ximal 1.5 cm of the supraspinatus tendon has a frayed appearance with contrast imbibition into the te ndon best appreciated on the ABER images and with extension of contrast into the subacromial/subdelto id bursa. There is however no measurable contrast filled tear defect. There is mild articular sided f raying along the anterior infraspinatus tendon. The teres minor tendon is normal. Mild subscapularis tendinopathy with partial-thickness tear measuring approximately 3 x 4 mm along the superolateral les ser tuberosity footplate of the subscapularis tendon with intrasubstance longitudinal split tear exte nding approximately 2 cm medially along the distal tendon. Mild fatty atrophy of the supraspinatus an d infraspinatus muscle bellies. Biceps tendon, glenoid labrum and glenohumeral cartilage: Bicipital tenodesis which is anchored along the caudal aspect of the intertubercular groove. The more distal tendon appears normal. Glenohumeral cartilage appears normal. Tiny marginal osteophytes along the anteroinferior glenoid at the base of the labrum which appears small and with mildly irregular m argins at this location likely related to degeneration. Additional mild degeneration at the posterosu perior labrum. Bones and other: Bone alignment is normal. No fracture or pathologic marrow replacing process. IMPRESSION: 1. Postoperative changes of prior rotator cuff repair with residual/recurrent partial-thickness artic ular sided supraspinatus tendon tear involving up to 50% the tendon thickness of the distal tendon wh ich appears frayed with contrast imbibition. Contrast does can indicate with the subacromial/subdelto id bursa consistent with full-thickness perforation however no measurable full-thickness tear defect is appreciated. 2. Small partial-thickness tear involving a small portion of the superolateral aspect of the lesser t uberosity footplate of the subscapularis tendon. 3. Mild acromioclavicular and glenohumeral osteoarthritis with degeneration of the posterosuperior an d anteroinferior glenoid labrum. 4. Bicipital tenodesis. Reviewed, dictated and finalized at location B. IMPRESSION: 1. Postoperative changes of prior rotator cuff repair with residual/recurrent p artial-thickness articular sided supraspinatus tendon tear involving up to 50% the tendon thickness of the distal tendon which appears frayed with contrast im bibition. Contrast [place]
== END ==
PROVIDERS: Visit Provider Orthopaedic Surgery
DX: M25.512 Pain in left shoulder (principal); Z98.890 Other specified postprocedural states; S46.012A Strain of muscle(s) and tendon(s) of the rotator cuff of left shoulder, initial encounter; M19.012 Primary osteoarthritis, left shoulder; M65.812 Other synovitis and tenosynovitis, left shoulder
CPT/HCPCS: 23350; 73222; A9577; Q9966

== ENCOUNTER 2020-03-07 11:14 | Outpatient (CLI) | payer OTHER, SELFPAY | END 2020-03-07 11:15 | disposition home or self-care (01) | PROVIDERS: PCP Family Medicine; Visit Provider Orthopaedic Surgery | DX: Z01.812 Encounter for preprocedural laboratory examination (principal); M75.102 Unspecified rotator cuff tear or rupture of left shoulder, not specified as traumatic | CPT/HCPCS: 87070 ==

== ENCOUNTER 2020-03-08 01:37 | Outpatient (CLI) | payer OTHER, SELFPAY ==
[2020-03-08 21:18] LABS: SARS-CoV-2 RNA PCR Negative
== END 2020-03-08 01:38 | disposition home or self-care (01) ==
LOC: ANHCOVIDDT 01:37
PROVIDERS: PCP Family Medicine; Visit Provider Orthopaedic Surgery
DX: Z01.812 Encounter for preprocedural laboratory examination (principal); Z20.828 Contact with and (suspected) exposure to other viral communicable diseases
CPT/HCPCS: 87635; C9803; U0003

== ENCOUNTER 2020-03-12 02:22 | Day surgery (SDC) | payer OTHER, SELFPAY ==
[2020-03-06 15:11] VITALS: BMI 33.6
--- NOTE | 2020-03-10 12:50 | PM.IMHP ---
H&P: HPI History of Present Illness Date/Time: 03/10/20 12:50 <ALBERTO Wilkes - Last Filed: 03/10/20 12:59> Chief complaint: Recurrent Rotator Cuff Tear Left Shoulder <ALBERTO Wilkes - Last Filed: 03/10/20 12:59> Narrative: Luz Peraza is a 54 year old female of Dr Bell who presents today for revision of left rotator cuff repair. She is approximately 4 months out from the original surgery. The 1st week and a half after her original surgery she was very noncompliant, she was removing her sling in using her arm for activities around the house. She has regained the motion in her shoulder but she still feels that the shoulder is weak and has not progressed. She has had a recent arthrogram of the shoulder which demonstrated high-grade partial-thickness tearing on the articular side surface of the supraspinatus and upper infraspinatus tendon. The deeper aspect of the tendon are retracted medially. The surgical option of revision of the rotator cuff tear was discussed with her. She feels that she would like to proceed with that to hopefully restore the strength in her shoulder. <ALBERTO Wilkes - Last Filed: 03/10/20 12:59> Review of Systems Review of Systems: All systems reviewed & are unremarkable except as noted in HPI and below <ALBERTO Wilkes - Last Filed: 03/10/20 12:59> [facility] Past Medical History Medical History: Medical History Anxiety Bowel obstruction (~2019) Chronic obstructive pulmonary disease Hyperlipidemia Hypertension Hypothyroidism Pulmonary embolism (~02/2007) Type 2 diabetes mellitus <ALBERTO Wilkes - Last Filed: 03/10/20 12:59> Surgical History Surgical History: Surgical History History of appendectomy History of arthroscopy of left knee History of cholecystectomy History of repair of left rotator cuff (~11/03/19) History of sinus surgery History of tonsillectomy <ALBERTO Wilkes - Last Filed: 03/10/20 12:59> Family History Family History: Family History Other Coronary artery disease Diabetes mellitus <ALBERTO Wilkes - Last Filed: 03/10/20 12:59> Social History Social History: Social History Social History: Surrogate decision maker: Christiano Peraza, . Code status: Full code. Smoking packs per day: 1.5 Smoking cigarettes per day: 30.0 Years smoked: 52 Smoking pack-years: 78.00 Smoking status: Former smoker Tobacco type: cigarettes Smoking end date: 10/02/17 Additional smoking assessment comments: QUIT SMOKING 2017 Alcohol intake: never Substance use: never Other substance usage details: Prior history of substance abuse to include marijuana, cocaine, and methamp Living arrangements: with family Additional living arrangements comments: Lives in [place] with her , children, and grandchildren. Gender identity (if verbalized by the patient): Female Spiritual care concerns: No <ALBERTO Wilkes - Last Filed: 03/10/20 12:59> Meds Home Medications and Allergies Home medications: Home Medications Medication Instructions Recorded Confirmed Type Humalog U-100 Insulin 1 sliding scale dose SUBCUT 10/24/19 03/12/20 History USEASDIRECTD amlodipine 5 mg PO HS 10/24/19 03/12/20 History atorvastatin 20 mg PO HS 10/24/19 03/12/20 History cholecalciferol (vitamin D3) 125 mcg PO DAILY 10/24/19 03/12/20 History [Vitamin D3] cyanocobalamin (vitamin B-12) 1,000 mcg PO DAILY 10/24/19 03/12/20 History [Vitamin B-12] famotidine 40 mg PO DAILY 10/24/19 03/12/20 History glimepiride 2 mg PO DAILY 10/24/19 03/12/20 History levothyroxine 100 mcg PO DAILY 10/24/19 03/06/20 History lisinopril 20 mg PO BID 10/24/19 03/06/20 History metoprolol succinate 25 mg PO HS 07
--- NOTE | 2020-03-11 13:04 | WPDANESEPPF ---
Anes - Initial Pre Proc Eval Procedure: Operation Date: 03/12/20 12:00 Proposed Procedures p Left Shoulder Arthroscopy, Open Revision Rotator Cuff Repair - Kush Strickland MD Date/Time: 03/11/20 13:04 Surgeon: Kush Strickland MD Pre Op Diagnosis: Recurrent Rotator Cuff Tear Left Shoulder Patient Data Age: 54 Gender: F Height: 1.6 m Weight: 86.18 kg Allergies Allergy/AdvReac Type Severity Reaction Status Date / Time codeine Allergy Unknown HALLUCINATE, Verified 03/12/20 11:07 PARANOID morphine Allergy Unknown ANGER, Verified 03/12/20 11:07 COMBATIVE Home Medications Medication Instructions Recorded Confirmed Type Humalog U-100 Insulin 1 sliding scale dose SUBCUT 10/24/19 03/06/20 History USEASDIRECTD amlodipine 5 mg PO HS 10/24/19 03/06/20 History atorvastatin 20 mg PO HS 10/24/19 03/06/20 History cholecalciferol (vitamin D3) 125 mcg PO DAILY 10/24/19 03/06/20 History [Vitamin D3] cyanocobalamin (vitamin B-12) 1,000 mcg PO DAILY 10/24/19 03/06/20 History [Vitamin B-12] famotidine 40 mg PO DAILY 10/24/19 03/06/20 History glimepiride 2 mg PO DAILY 10/24/19 03/06/20 History levothyroxine 100 mcg PO DAILY 10/24/19 03/06/20 History lisinopril 20 mg PO BID 10/24/19 03/06/20 History metoprolol succinate 25 mg PO HS 10/24/19 03/06/20 History zinc 50 mg PO DAILY 10/24/19 03/06/20 History ascorbic acid (vitamin C) 1,000 mg PO DAILY 11/02/19 03/06/20 History loratadine 10 mg PO DAILY 03/06/20 03/06/20 History magnesium 250 mg PO DAILY 03/06/20 03/06/20 History multivitamin [Hair,Nails and Skin 1 tablet PO DAILY 03/06/20 03/06/20 History Vitamin] Patient hx anesthesia problems: none Family hx anesthesia problems: none PMFSH Past Medical History Medical History Anxiety Bowel obstruction (~2019) Chronic obstructive pulmonary disease Hyperlipidemia Hypertension Hypothyroidism Pulmonary embolism (~02/2007) Type 2 diabetes mellitus Surgical History Surgical History History of appendectomy History of arthroscopy of left knee History of cholecystectomy History of repair of left rotator cuff (~11/03/19) History of sinus surgery History of tonsillectomy Family History Family History Other Coronary artery disease Diabetes mellitus Social History Social History Social History: Surrogate decision maker: Christiano Peraza, . Code status: Full code. Smoking packs per day: 1.5 Smoking cigarettes per day: 30.0 Years smoked: 52 Smoking pack-years: 78.00 Smoking status: Former smoker Tobacco type: cigarettes Smoking end date: 10/02/17 Additional smoking assessment comments: QUIT SMOKING 2017 Alcohol intake: never Substance use: never Other substance usage details: Prior history of substance abuse to include marijuana, cocaine, and methamp Living arrangements: with family Additional living arrangements comments: Lives in [place] with her , children, and grandchildren. Gender identity (if verbalized by the patient): Female Spiritual care concerns: No Anes - Eval Final PreProcedure Day of Procedure 03/11/20 13:04 Patient weight: obese Heart: regular rate and rhythm Lungs: clear to auscultation and normal air movement Airway: Mallampati scale class II Neurological: alert and oriented Last oral intake: >/= 8 hours ASA classification: III Emergent: no Anesthetic plan: proceed Anesthesia type and monitoring: general ETT and standard monitoring Informed Consent: The patient's anesthetic plan and its attendant risks and benefits were discussed with the patient/family/POA. Questions were solicited and answers provided to the satisfaction of the patient/family/POA.
[2020-03-12] VITALS (11 sets, daily range): BP systolic 95–124; BP diastolic 55–74; PULSE 67–91; RESP 12–20; TEMP 36.1–36.4; O2SAT 95–100
--- NOTE | 2020-03-12 10:24 | WPDANESPNB ---
Anes - Peripheral Nerve Block Date/Time: 03/12/20 10:24 I have discussed with the patient/family/POA the placement of a peripheral nerve block for post-operative pain management, including associated risks, benefits, complications, and side effects. Alternative methods of post-operative analgesia were detailed. Questions were solicited and answers provided to the satisfaction of the patient/family/POA. Time-Out: A pre-procedural Time-Out was completed immediately before starting the procedure and confirmed: Patient Identification, Site, Procedure, Patient Position and the Availability of Requisite Equipment. Clinical Indications: Acute post-operative pain management requested by the operative surgeon. Nerve Block Insertion Note Anes-nerve block: interscalene left Patient position: supine Skin prep: chlorhexidine Needle: 22 gauge, stimulating, insulated echogenic needle. Needle length: 50 mm Technique: ultrasound Injectate: bupivacaine 0.25% with epi 5 mcg/ml (30 cc (hospital shortage of 0.5%)) and other Observations: tolerated well Complications: none
[2020-03-12] MEDS: LACTATED RINGERS 1,000 ML 30 ML IV CONT ×2 (11:00→15:31)
[2020-03-12 11:05] LABS: Glucose Point of Care 143 (65-105)
[2020-03-12] MEDS: KETOROLAC 15 MG/ML VIAL (*BKC) IV PUSH (11:22)
[2020-03-12] MEDS: ACETAMINOPHEN 500 MG TABLET 1000 MG PO (11:22)
--- NOTE | 2020-03-12 12:00 | WPDHPUPDATE1 ---
History and Physical Update Update Date/Time: 03/12/20 12:00 History and Physical has been reviewed, including an updated exam of the patient. There are NO changes in the patient's condition. Risks, benefits, and alternatives have been discussed and questions answered. Patient agrees to proceed with procedure.
[2020-03-12] MEDS: ceFAZolin 2 GM/D5W 50 ML 2 GM/50 ML BAG IVPB (12:13)
[2020-03-12] MEDS: ceFAZolin SODIUM 1 GM VIAL IRRIGATION (13:09)
[2020-03-12] MEDS: BUPIVACAINE HCL 0.5% PF 30 ML VIAL 10 ML INFILTRATE (13:10)
[2020-03-12] MEDS: ceFAZolin SODIUM 1 GM VIAL IV PUSH (14:35)
--- NOTE | 2020-03-12 15:35 | PM.PROC ---
Procedure Note - Detailed Date of procedure: 03/12/20 Pre-op diagnosis: Recurrent Rotator Cuff Tear Left Shoulder Post-op diagnosis: same Procedure performed: Diagnostic arthroscopy, open revision rotator cuff repair left shoulder Description of procedure: Patient was brought to the operating room and general anesthesia was administered. She was placed in the beach chair position left shoulder prepped draped usual fashion all the skin covered with Ioban accepted up portion. He received 2 g of Ancef and weight based vancomycin preoperatively. Posterior portal was placed and we could readily see the high-grade articular sided partial thickness tear of both infraspinatus and supraspinatus tendons. The entire greater tuberosity footprint was exposed bone with a thin membrane of tissue attached far lateral aspect of the greater tuberosity. The Arthrex 5 a suture tapes and the at the bonds were seen spanning between the bone and the tendon overhead with some of the sutures broken. The subscapularis looked intact. The previous biceps tenotomy which was associated with the biceps tenodesis was visualized and the labrum looked fine minus the biceps. There was mild chondromalacia of the superior humeral head. Having made the decision therefore to proceed with repeat 3 repair, the remaining skin was covered with Ioban and we changed outer gloves the previous longitudinal incision was used. We extended this about 5 mm proximally and distally. We used Exparel and 0.5% Marcaine 10 cc mixed together as a 30 cc mixture in carefully injected the soft tissues a little bit at a time as we went. Dissection was carried down through the subcutaneous fat to the deltoid. The deltoid split and the small area of detachment had healed very well. We really incised deltoid split this time we elevated 1 cm of the anterior deltoid from the acromion. The acromioplasty was very adequate. The broken sutures were removed at this time. We saw 2 primary splits in the tendon which I suspect were from where 2 of the suture tapes the pull-through and 1 of the suture tapes was seen to be ruptured. These were removed along with suture knots. The tear was attached only by thin membrane of semi lucent scar tissue. This tissue was debrided and this left a U shaped tear involving all of the supraspinatus including the anterior cable and the upper portion of infraspinatus tendons. The tuberosity was carefully prepared. 2 mm bur was used to make 1 mm indentations in the more sclerotic areas until all the tuberosity surface was bleeding. The tendon was mobilized using Malik retractor releasing adhesions superficial to the supraspinatus and infraspinatus muscle bellies. There was a fair amount of scar tissue between the anterior deltoid and the bicipital groove area and the anterior deltoid was carefully elevated off this bicipital groove area and adhesions she the deltoid and lateral aspect of the humeral head were released. We were careful to keep the split distance of less than 4 cm. We had adequate range of motion. We then placed 3 of the Arthrex suture tapes using the Jive Bike suture Passer getting deep bites reaching the lateral edge of the deepest fibers of the supraspinatus infraspinatus tendons and with these at Carol he has traction sutures were able of further mobilize the tendon. We then passed these 3 Arthrex suture tapes who the greater tuberosity and proper position and tied these down in simple fashion. The tear was then reinforced with approximately 7 or 8 additional 2. Ethibond all placed in simple fashion in a convergent pattern to create a smooth spherical repair. Range of motion the shoulder show that the repair was quite secure and without any undue tension. Having left no areas of significant tendon thinning I did not feel using tissue augmentation would be needed. The wound was irrigated with antibiotic solution several times very and during the procedure. Deltoid was repaired with 2 2.
[2020-03-12 15:40] LABS: Glucose Point of Care 164 (65-105)
[2020-03-12] MEDS: fentaNYL CITRATE INJ (*CRX) 100 MCG/2 ML VIAL 25 MCG IV PUSH ×2 (15:55→16:28)
[2020-03-12] MEDS: ONDANSETRON INJ 4 MG/2 ML VIAL IV PUSH (16:16)
--- NOTE | 2020-03-12 16:24 | SUR.PHASEI ---
2935- Call to Dr. Mary to request pain pill for patient for transport home. Patient with known allergies and sensitivities to pain medications. Orders obtained for PO Hydrocone 5MG- Acetaminophen 325MG x1.
[2020-03-12] MEDS: HYDROcodone/acetaminophen (*CRX) 5-325 MG TABLET 1 TAB PO (16:57)
== END 2020-03-12 18:05 | disposition home or self-care (01) ==
PROVIDERS: PCP Family Medicine; Visit Provider Orthopaedic Surgery
PROC: (CPT 29805; principal; 2020-03-12 12:00)
DX: M75.102 Unspecified rotator cuff tear or rupture of left shoulder, not specified as traumatic (principal); I10 Essential (primary) hypertension; E78.5 Hyperlipidemia, unspecified; E03.9 Hypothyroidism, unspecified; E11.9 Type 2 diabetes mellitus without complications; J44.9 Chronic obstructive pulmonary disease, unspecified; F41.9 Anxiety disorder, unspecified; Z86.711 Personal history of pulmonary embolism; Z79.4 Long term (current) use of insulin; Z87.891 Personal history of nicotine dependence; E66.9 Obesity, unspecified; Z68.33 Body mass index [BMI] 33.0-33.9, adult
CPT/HCPCS: 23412; A4565; A9270; C9290; J0330; J0690; J1100; J1170; J1885; J2250; J2370; J2405; J2704; J2710; J3010; J3370; J7120

== ENCOUNTER → 2020-12-02 02:37 | Outpatient (CLI) | payer OTHER, SELFPAY ==
[2020-12-03 15:33] LABS: SARS-CoV-2 RNA PCR Negative
== END ==
PROVIDERS: PCP Family Medicine; Visit Provider Family Medicine
DX: R68.89 Other general symptoms and signs (principal); Z20.822 Contact with and (suspected) exposure to COVID-19
CPT/HCPCS: C9803; U0003; U0005

== ENCOUNTER → 2020-12-09 04:46 | Outpatient (CLI) | payer OTHER, SELFPAY ==
[2020-12-09 21:09] LABS: SARS-CoV-2 RNA PCR Negative
== END ==
PROVIDERS: PCP Family Medicine; Visit Provider Nurse Practitioner Family
DX: R68.89 Other general symptoms and signs (principal); Z20.822 Contact with and (suspected) exposure to COVID-19
CPT/HCPCS: C9803; U0003; U0005

== ENCOUNTER 2022-01-22 14:28 | Outpatient (CLI) | payer OTHER, SELFPAY ==
--- NOTE | ~2022-01-22 | XR_ITS ---
EXAMINATION: XR lumbar spine 2-3V DATE: 01/22/2022 14:54 INDICATION: Low back pain TECHNIQUE: Anteroposterior and lateral views of the lumbar spine, and cone-down lateral view of the l umbosacral junction were obtained. COMPARISON: None. FINDINGS: There are 10 mm of anterolisthesis of L5 on S1. Bone alignment is otherwise normal. There i s no fracture. There is severe loss of intervertebral disc space height at L5-S1 and mild loss of int ervertebral disc space height at L2-3 and L3-4. Small degenerative osteophytes project from the anter ior endplates of multiple vertebral bodies. 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 IMPRESSION: 1. Lumbar spondylosis, severe at L5-S1 and mild to moderate elsewhere. Reviewed, dictated and finalized at location A.
== END 2022-01-22 14:29 | disposition home or self-care (01) ==
LOC: ANHIMG 14:33
PROVIDERS: PCP Family Medicine; Visit Provider Physician Assistant
DX: M54.50 Low back pain, unspecified (principal); M47.816 Spondylosis without myelopathy or radiculopathy, lumbar region
CPT/HCPCS: 72100